=== PATIENT | male | born 1985 | race Caucasian/White ===

== ENCOUNTER 2019-10-18 11:10 | Outpatient (CLI) | payer OTHER ==
[2019-10-18 15:11] LABS: CALCIUM 9.1 mg/dL (8.5-10.3); CREATININE 0.9 mg/dL (0.6-1.2)
[2019-10-18 15:17] LABS: HB2 TOTAL 14.3 g/dL; HEMOGLOBIN A1C 0.62 g/dL; HEMOGLOBIN A1C % 6.1 % (4.6-6.2)
== END 2019-10-18 11:11 | disposition home or self-care (01) ==
LOC: LAB.S 11:10
PROVIDERS: ATTEND Internal Medicine Endocrinology, Diabetes & Metabolism
DX: E10.9 Type 1 diabetes mellitus without complications (principal)
CPT/HCPCS: 36415; 80048; 81599; 82043; 82570; 83036; 84443

== ENCOUNTER 2020-05-21 08:42 | Outpatient (CLI) | payer BC ==
[2020-05-21 14:40] LABS: CALCIUM 9.4 mg/dL (8.5-10.3); POTASSIUM 4.1 mmol/L (3.5-5.0)
[2020-05-21 19:35] LABS: ESTIMATED AVERAGE GLUCOSE 137 mg/dL (70-100); HEMOGLOBIN A1c% 6.4 % (4.27-6.07)
== END 2020-05-21 08:43 | disposition home or self-care (01) ==
LOC: LAB.S 08:42
PROVIDERS: ATTEND Internal Medicine Endocrinology, Diabetes & Metabolism
DX: E10.9 Type 1 diabetes mellitus without complications (principal); E03.9 Hypothyroidism, unspecified
CPT/HCPCS: 36415; 80048; 82043; 83036; 84443

== ENCOUNTER 2021-05-18 15:39 | Outpatient (CLI) | payer OTHER ==
[2021-05-18 18:11] LABS: BUN - BLOOD UREA NITROGEN 18 mg/dL (6-20); CALCIUM 9.5 mg/dL (8.5-10.3); CARBON DIOXIDE - CO2 31 mmol/L (21-32); CHLORIDE 100 mmol/L (101-111); CHOL/HDL RATIO 3.4 (<5.0); CHOLESTEROL 193 mg/dL; CREATININE 0.9 mg/dL (0.6-1.2); GFR - MDRD 95 (>89); GLUCOSE 174 mg/dL (70-100); HDL CHOLESTEROL 56 mg/dL; LDL CHOLESTEROL,CALCULATED 115 mg/dL; LDL/HDL RATIO 2.1 (<3.6); POTASSIUM 4.2 mmol/L (3.5-5.0); SODIUM 139 mmol/L (135-145); TRIGLYCERIDES 110 mg/dL; VLDL CHOLESTEROL 22 mg/dL
[2021-05-18 18:51] LABS: ESTIMATED AVERAGE GLUCOSE 140 mg/dL (70-100); HEMOGLOBIN A1c% 6.5 % (4.27-6.07)
== END 2021-05-18 15:40 | disposition home or self-care (01) ==
LOC: LAB.S 15:39
PROVIDERS: ATTEND Internal Medicine Endocrinology, Diabetes & Metabolism
DX: E10.9 Type 1 diabetes mellitus without complications (principal); E03.8 Other specified hypothyroidism; E06.3 Autoimmune thyroiditis
CPT/HCPCS: 36415; 80048; 80061; 82043; 82570; 83036; 83721; 84443

== ENCOUNTER 2021-11-13 11:33 | Outpatient (CLI) | payer OTHER ==
[2021-11-13 20:02] LABS: ESTIMATED AVERAGE GLUCOSE 143 mg/dL (70-100); HEMOGLOBIN A1c% 6.6 % (4.27-6.07)
== END 2021-11-13 11:34 | disposition home or self-care (01) ==
LOC: LAB.S 11:33
PROVIDERS: ATTEND Internal Medicine Endocrinology, Diabetes & Metabolism
DX: E03.8 Other specified hypothyroidism (principal); E06.3 Autoimmune thyroiditis; E10.9 Type 1 diabetes mellitus without complications
CPT/HCPCS: 36415; 83036; 84443

== ENCOUNTER 2022-09-15 12:01 | Outpatient (CLI) | payer OTHER ==
[2022-09-15 16:59] LABS: CALCIUM 9.3 mg/dL (8.5-10.3); CREATININE 0.9 mg/dL (0.6-1.2); POTASSIUM 4.5 mmol/L (3.5-5.0)
[2022-09-15 20:45] LABS: ESTIMATED AVERAGE GLUCOSE 148 mg/dL (70-100); HEMOGLOBIN A1c% 6.8 % (4.27-6.07)
== END 2022-09-15 12:02 | disposition home or self-care (01) ==
LOC: LAB.S 12:01
PROVIDERS: ATTEND Internal Medicine Endocrinology, Diabetes & Metabolism
DX: E03.8 Other specified hypothyroidism (principal); E06.3 Autoimmune thyroiditis; E10.9 Type 1 diabetes mellitus without complications
CPT/HCPCS: 36415; 80048; 82043; 83036; 84443

== ENCOUNTER 2023-03-20 08:00 | Outpatient (CLI) | payer OTHER ==
--- NOTE | 2023-03-22 10:14 | XRAY Report ---
PROCEDURE: Chest 2V INDICATIONS: PERSISTENT COUGH TECHNIQUE: 2 views of the chest were acquired. COMPARISON: None. FINDINGS: Surgical changes and devices: None. Lungs and pleura: No pleural effusions or pneumothorax. Lungs are clear. Mediastinum: Mediastinal contours appear normal. Heart size is normal. Bones and chest wall: No suspicious bony lesions. Overlying soft tissues appear unremarkable. IMPRESSION: No acute cardiopulmonary process. Reviewed by: Spencer Hilliard MD on 03/22/2023 10:12 AM [facility] Approved by: Spencer Hilliard MD on 03/22/2023 10:12 AM PST Station ID: [id number]
== END 2023-03-20 23:59 | disposition home or self-care (01) ==
LOC: DI.S 08:00
PROVIDERS: ATTEND Internal Medicine
DX: R05.3 Chronic cough (principal)

== ENCOUNTER 2023-07-21 07:00 | Outpatient (CLI) | payer OTHER | END 2023-07-21 23:59 | disposition home or self-care (01) | LOC: LAB.S 07:00 | PROVIDERS: ATTEND Emergency Medicine | DX: K61.1 Rectal abscess (principal) | CPT/HCPCS: 87070; 87077; 87205 ==

== ENCOUNTER 2023-07-30 17:51 | Emergency (ER) | payer OTHER ==
[2023-07-30 18:09] VITALS: BP 135/77; O2SAT 99
--- NOTE | 2023-07-30 18:27 | ED Physician Documentation ---
PD HPI SKIN - Stated complaint Stated Complaint: RASH - Chief complaint Chief Complaint: General - History obtained from History obtained from: Patient - Additional information Additional information: Patient is a 38-year-old male with insulin-dependent diabetes presenting for evaluation of a generalized rash that started last night and is still present today. Patient reports that 9 days ago he was seen at the walk-in clinic for a perianal abscess that was drained and completed a course of Bactrim on Thursday. He developed this rash yesterday that is itching. He went to the walk-in clinic this morning and they told him it could be [id number] but it is also reported it could be an allergic reaction so gave him prescriptions for Estefani, Pepcid and prednisone. Patient states that on Thursday and Thursday he did have low-grade fevers but otherwise denies URI symptoms of cough, congestion, sore throat. Denies chest pain, shortness of air, abdominal symptoms. Review of Systems Constitutional: reports: Fever (Resolved) Cardiac: denies: Chest pain / pressure Respiratory: denies: Dyspnea GI: denies: Abdominal Pain Skin: reports: Rash PD PAST MEDICAL HISTORY - Past Medical History Past Medical History: Yes Endocrine/Autoimmune: Type 1 diabetes, Other GI: Other Other Past Medical History: chaitanya's, celiacs dx, vitiligo - Past Surgical History Past Surgical History: Yes Ortho: Spine surgery - Allergies Allergies/Adverse Reactions: Allergies Allergy/AdvReac Type Severity Reaction Status Date / Time gluten AdvReac Emesis Verified 07/30/23 18:07 - Social History Does the pt smoke?: No Smoking Status: Former smoker Does the pt drink ETOH?: Yes Does the pt have substance abuse?: No PD ED PE NORMAL - General General: Alert and oriented X 3, No acute distress, Well developed/nourished - HEENT HEENT: Atraumatic, Moist mucous membranes, Pharynx benign - Neck Neck: Supple, no meningeal sign - Cardiac Cardiac: RRR, Strong equal pulses - Respiratory Respiratory: No respiratory distress, Clear bilaterally - Abdomen Abdomen: Soft, Non tender - Derm Derm: Other (Blanching maculopapular rash to trunk and bilateral upper and lower extremities with no involvement of palms or soles. No signs of involvement of mucosa. No vesicles or blistering. No open wounds. No warmth or abnormal drainage.) Results - Vitals Vitals: Vital Signs - 24 hr 07/30/23 17:59 Temperature 36.1 C L Heart Rate 72 Respiratory 18 Rate Blood Pressure 135/77 H O2 Saturation 99 Oxygen O2 Source Room air PD Medical Decision Making - ED course ED course: Patient presenting for evaluation of full body rash. No signs of cellulitis. Patient is well-appearing, nontoxic. Rash is maculopapular in nature and patient does report some itching associated with it. Discussed possible etiologies and concerns for possible allergic process. Patient was seen at the walk-in clinic this morning for this and given prescription for medications but he wanted to be checked again just to make sure. At this time we will have him trial antihistamines to see if this improves the rash. Because he has a diet that again insulin-dependent I am concerned about him taking prednisone given type 1 diabetes. Therefore at this time I will have him hold on the prednisone he was prescribed by the walk-in clinic and see if he improves with treatment with antihistamines and topical cortisone. However he understands importance of close follow-up should his symptoms not improve and certainly if any worsening. Departure - Departure Disposition: 01 Home, Self Care Clinical Impression: Rash and nonspecific skin eruption Condition: Stable Instructions: ED Dermatitis Non Specific Rash Comments: The appearance of your rash as well as the distribution suggests an allergic process. I would suggest that you take the famotidine and fexofenadine. If you continue to feel itching you can use Benadryl (diphenhydramine) And could also consider using a 1% [id number] hydrocortisone cream to areas of the rash that are most itchy. If your symptoms are not getting better with these treatments over the next 3 days then I would recommend reevaluation. Return to the ER with any worsening symptoms. Forms: PCP List Discharge Date/Time: 07/30/23 18:33
== END 2023-07-30 18:33 | disposition home or self-care (01) ==
LOC: ED 17:51
DX: R21 Rash and other nonspecific skin eruption (principal); L29.9 Pruritus, unspecified; E10.9 Type 1 diabetes mellitus without complications; Z79.4 Long term (current) use of insulin; Z87.891 Personal history of nicotine dependence
CPT/HCPCS: 99281; 99283

== ENCOUNTER 2023-10-26 12:45 | Outpatient (CLI) | payer OTHER | END 2023-10-26 12:46 | disposition home or self-care (01) | LOC: LAB.S 12:45 | PROVIDERS: ATTEND Internal Medicine Endocrinology, Diabetes & Metabolism | DX: E03.8 Other specified hypothyroidism (principal); E06.3 Autoimmune thyroiditis | CPT/HCPCS: 36415; 84443 ==